=== PATIENT | male | born 1975 | race Caucasian/White ===

== ENCOUNTER 2016-06-18 12:45 | Emergency (ER) | payer OTHER ==
--- NOTE | 2016-06-18 12:59 | EDPHY ---
HPI/HX/ROS/PE/MDM Narrative: Chief complaint: Allergic reaction HPI: 41-year-old male from [place] has a known allergy to paracetamol unknowingly took Tylenol about an hour ago unaware that it is the same drug. Patient states that when he is taking paracetamol in the past he gets with his sensation of throat closing and tightness in his chest. He is beginning to have that sensation now. He was given intravenous diphenhydramine and Solu- Medrol. He states he is feeling somewhat better now. No shortness of breath. He is not itching. Does not have a sore throat. Is also complaining of some right shoulder pain status post a fall he took skiing 2 days ago. ROS: 10 point Review of Systems is negative except as noted in the HPI. Physical exam: Gen: Awake, Alert, No Distress, mild facial flushing. Vital signs are unremarkable HEENT: Nose: no rhinorrhea Eyes: PERRLA, EOMI Mouth: Moist mucosa no angioedema Neck: Supple, no JVD Chest: nontender, lungs clear to auscultation, no wheeze or stridor Heart: S1, S2 normal, no murmur Abd: Soft, non-tender, no guarding Back: no CVA tenderness, no midline tenderness Ext: no edema, mild tenderness at the right AC joint without deformity. He has full range of motion of his right arm without tenderness. Skin: no rash Neuro: CN II-XII intact, Sensation grossly intact, Strength 5/5 in bilateral upper and lower extremities ED Course: 1338 patient is resting comfortably. No edema, no distress. General Time Seen by Provider: 06/18/16 12:50 Initial Vital Signs: Initial Vital Signs Temperature (C) 37.1 C 06/18/16 12:45 Heart Rate 87 06/18/16 12:45 Respiratory Rate 20 06/18/16 12:45 Blood Pressure 151/105 H 06/18/16 12:45 O2 Sat (%) 93 06/18/16 12:45 O2 Delivery Mode Room Air Allergies/Adverse Reactions: acetaminophen [From Tylenol] Allergy (Verified 06/18/16 13:04) Departure - Departure Disposition: Home, Routine, Self-Care Clinical Impression: Allergic reaction Condition: Good Instructions: General Allergic Reaction (ED) Additional Instructions: Continue taking diphenhydramine (Benadryl) per package instructions for the next [address] taking the Benadryl as they can make you sleepy. Return to the emergency depart for increasing swelling, shortness of breath, rash, sore throat, or any other concerns. Follow up with your doctor in 3-4 days for any concerns.
[2016-06-18 14:18] VITALS: BP 135/88; PULSE 82; RESP 16; TEMP 97.2; O2SAT 96
== END 2016-06-18 14:10 | disposition home or self-care (01) ==
DX: R07.89 Other chest pain (principal); T39.1X5A Adverse effect of 4-Aminophenol derivatives, initial encounter